=== PATIENT | female | born 1965 | race Caucasian/White ===

== ENCOUNTER 2024-05-29 10:40 | Emergency (ER) | payer OTHER, MEDICAID ==
[~2024-05-29] VITALS: Ht 160 cm; Wt 72.6 kg
[2024-05-29 10:54] VITALS: BP 120/76; PULSE 63; RESP 20; TEMP 98; O2SAT 98
[2024-05-29 11:00] VITALS: O2SAT 98
[2024-05-29 11:20] LABS: APPEARANCE,URINE CLEAR (CLEAR); BILIRUBIN,URINE NEGATIVE (NEGATIVE); BLOOD, URINE TRACE-I (NEGATIVE); COLOR,URINE YELLOW (YELLOW); LEUKOCYTE ESTERASE ,URINE NEGATIVE (NEGATIVE); NITRITE, URINE NEGATIVE (NEGATIVE); PROTEIN,URINE NEGATIVE (NEGATIVE); UGLUCOSE NEGATIVE (NEGATIVE); UROBILINOGEN,URINE 0.2 EU/dL (0.2 - 1)
[2024-05-29 11:29] LABS: RBC,URINE 0-5 /HPF (0-5); WBC,URINE 0-5 /HPF (0-5)
[2024-05-29 11:31] LABS: BACTERIA,URINE OCCASSIONAL /HPF (None Seen); MUCUS,URINE 1+ /LPF (None Seen); SQUAMOUS EPITHELIAL CELL,UR 0-3 (FEW) /LPF (0-3 (FEW))
[2024-05-29] MEDS ORDERED: CIPR500T4 PO (13:20)
[2024-05-29] MEDS ORDERED: IBUP-2213 PO (13:20)
[2024-05-29 13:26] VITALS: BP 118/72; PULSE 66; RESP 16; TEMP 98; O2SAT 98
== END 2024-05-29 13:26 | disposition home or self-care (01) ==
LOC: MED 10:40
DX: R10.32 Left lower quadrant pain (principal); R10.13 Epigastric pain; R19.7 Diarrhea, unspecified; Z90.49 Acquired absence of other specified parts of digestive tract; Z98.890 Other specified postprocedural states
CPT/HCPCS: 81001; 99283